=== PATIENT | male | born 1945 | race Caucasian/White ===

== ENCOUNTER 2023-01-23 20:47 | Inpatient (IN) | payer MEDICARE, OTHER ==
[~2023-01-23] VITALS: Ht 160 cm; Wt 67.4 kg
[2023-01-23 23:07] LABS: BASOPHILS % 0.4 % (0.0-2.0); EOSINOPHILS % 1.5 % (0.0-5.0); HEMATOCRIT. 26.7 % (42.0-52.0); HEMOGLOBIN. 8.6 g/dL (14.0-18.0); LYMPHOCYTES % 15.7 % (20.0-50.0); MEAN CORPUSCULAR HEMOGLOBIN 26.8 pg (28.0-32.0); MEAN CORPUSCULAR VOLUME 83.1 fL (80.0-94.0); MEAN PLATELET VOLUME 9.2 fl (7.4-10.4); NEUTROPHILS % 76.4 % (40.0-76.0); PLATELET 255 x1000/uL (130-400); RED BLOOD CELL COUNT 3.21 mill/uL (4.7-6.1); RED CELL DISTRIBUTION WIDTH 16.7 % (11.6-14.6)
[2023-01-23 23:14] LABS: CHLORIDE 112 mEq/L (98-107)
[2023-01-23 23:30] LABS: T4 FREE 0.95 ng/dL (0.76-1.46)
[2023-01-23] MEDS ORDERED: SODIUM CHLORIDE 0.9% 1,000 ML IV ONE (23:45)
[2023-01-24] MEDS ORDERED: IOHEXOL-350 100 ML BOTTLE ONE (00:33)
[2023-01-24] MEDS ORDERED: ONDANSETRON HCL 4MG/2ML INJ IV PRN (11:00)
[2023-01-24] MEDS ORDERED: IPRATROPIUM/ALBUTEROL 0.5-3(2.5)MG/3ML NEB HHN PRN (11:00)
[2023-01-24] MEDS ORDERED: ACETAMINOPHEN 325MG TABLET PO PRN (11:00)
[2023-01-24] MEDS ORDERED: ENOXAPARIN 40MG/0.4ML SYR SUBCUT SCH (12:00)
[2023-01-24 16:00] VITALS: BP 94/51
[2023-01-24 17:30] LABS: VITAMIN B12 SERUM 374 pg/mL (211-911)
[2023-01-24 18:05] LABS: FERRITIN < 5 ng/mL (22-322)
[2023-01-24] MEDS: ASPIRIN 81MG TABLET PO SCH (18:33)
[2023-01-24] MEDS: SODIUM CHLORIDE 0.45% 1,000 ML IV SCH (18:42)
[2023-01-24 20:00] VITALS: BP 115/64
[2023-01-24 21:15] VITALS: BP_SYST 105; BP_SYST 118; BP_SYST 119; BP_DIAS 57; BP_DIAS 65; BP_DIAS 71
[2023-01-24] MEDS: ATORVASTATIN CALCIUM 20MG TABLET PO SCH (21:15)
[2023-01-24 23:42] LABS: CREATINE KINASE MB FRACTION 4.8 ng/mL (0.5-3.6)
[2023-01-24] MEDS: BLOOD SUGAR DIAGNOSTIC STRIP TEST SCH (23:46)
[2023-01-25] VITALS: BP 104/64
[2023-01-25 00:11] LABS: CLARITY URINE CLEAR (CLEAR); COLOR URINE YELLOW (YELLOW); KETONES URINE NEGATIVE (NEGATIVE); LEUKOCYTE ESTERASE URINE TRACE (NEGATIVE); NITRITE URINE NEGATIVE (NEGATIVE); OCCULT BLOOD URINE NEGATIVE (NEGATIVE); PH URINE 6.5 (4.5-8.0); PROTEIN URINE NEGATIVE (NEGATIVE); UROBILINOGEN URINE 0.2 E.U./dL (0.2-1.0)
[2023-01-25] MEDS ORDERED: DEXTROSE 50% WATER 50ML SYRINGE IV PRN (00:30)
[2023-01-25 00:34] LABS: *AMPHETAMINES SCREEN URINE NEGATIVE (NEGATIVE); *BARBITURATES SCREEN URINE NEGATIVE (NEGATIVE); *BENZODIAZEPINES SCREEN URINE NEGATIVE (NEGATIVE); *COCAINE SCREEN URINE NEGATIVE (NEGATIVE); CANNABINOID URINE SCREEN NEGATIVE (NEGATIVE); METHADONE URINE SCREEN NEGATIVE (NEGATIVE); OPIATES URINE SCREEN NEGATIVE (NEGATIVE); PHENCYCLIDINE URINE SCREEN NEGATIVE (NEGATIVE)
[2023-01-25] MEDS: SODIUM CHLORIDE 0.45% 1,000 ML IV SCH ×2 (03:46→13:47)
[2023-01-25 04:00] VITALS: BP 106/62
[2023-01-25] MEDS: BLOOD SUGAR DIAGNOSTIC STRIP TEST SCH ×4 (06:37→21:00)
[2023-01-25] MEDS: FUROSEMIDE 20MG/2ML VIAL IVP SCH (06:43)
[2023-01-25] MEDS: INSULIN LISPRO 100 UNITS/ML SUBCUT SCH ×4 (06:50→21:00)
[2023-01-25 07:42] VITALS: BP 111/64
[2023-01-25] MEDS: ASPIRIN 81MG TABLET PO SCH (09:13)
[2023-01-25] MEDS ORDERED: IODIXANOL 320MG/ML 100 ML BOTTLE IV ONE (10:54)
[2023-01-25] MEDS ORDERED: DIPHENHYDRAMINE 50MG/ML VIAL ONE (11:14)
[2023-01-25] MEDS ORDERED: LIDOCAINE HCL/PF 1% 10 MG/ML 5ML VIAL ONE (11:14)
[2023-01-25] MEDS ORDERED: HEPARIN 1000 UNITS/ML 10ML ONE (11:15)
[2023-01-25] MEDS ORDERED: MIDAZOLAM HCL 2 MG/2 ML VIAL ONE (11:15)
[2023-01-25] MEDS ORDERED: FENTANYL CITRATE/PF 50MCG/ML 2ML VIAL ONE (11:15)
[2023-01-25] MEDS ORDERED: VERAPAMIL HCL 2.5 MG/1 ML 2ML VIAL IV ONE (11:15)
[2023-01-25 12:54] VITALS: BP 116/30
[2023-01-25] MEDS ORDERED: ACETAMINOPHEN 325MG TABLET PO PRN ×2 (13:00→17:15)
[2023-01-25] MEDS ORDERED: ATROPINE SULFATE 1MG/10ML SYR IV PRN (13:00)
[2023-01-25] MEDS ORDERED: NICARDIPINE 100MCG/ML 10ML VIAL (CATH LAB) IV ONE (13:21)
[2023-01-25] MEDS ORDERED: NITROGLYCERIN 50MCG/ML 10ML VIAL (CATH LAB) IV ONE (13:21)
[2023-01-25] MEDS: ENOXAPARIN 60MG/0.6ML SYR SUBCUT SCH (14:00)
[2023-01-25 16:00] VITALS: BP 116/30
[2023-01-25] MEDS ORDERED: NITROGLYCERIN 0.4MG TABLET SL SL PRN (17:15)
[2023-01-25 20:00] VITALS: BP 96/43
[2023-01-25] MEDS: ATORVASTATIN CALCIUM 20MG TABLET PO SCH (20:36)
[2023-01-26] VITALS: BP 113/78
[2023-01-26] MEDS: SODIUM CHLORIDE 0.45% 1,000 ML IV SCH ×2 (02:12→18:11)
[2023-01-26] MEDS: ENOXAPARIN 60MG/0.6ML SYR SUBCUT SCH ×2 (02:12→15:30)
[2023-01-26 04:00] VITALS: BP 93/59
[2023-01-26 06:12] LABS: INR 1.1; PROTHROMBIN TIME 11.4 sec (9.6-11.0)
[2023-01-26 06:13] LABS: BASOPHILS % 0.5 % (0.0-2.0); EOSINOPHILS % 3.6 % (0.0-5.0); HEMATOCRIT. 26.8 % (42.0-52.0); HEMOGLOBIN. 8.8 g/dL (14.0-18.0); LYMPHOCYTES % 24.1 % (20.0-50.0); MEAN CORPUSCULAR HEMOGLOBIN 26.9 pg (28.0-32.0); MEAN CORPUSCULAR VOLUME 82.4 fL (80.0-94.0); MEAN PLATELET VOLUME 9.1 fl (7.4-10.4); MONOCYTES % 10.1 % (2.0-8.0); NEUTROPHILS % 61.7 % (40.0-76.0); PLATELET 241 x1000/uL (130-400); RED BLOOD CELL COUNT 3.26 mill/uL (4.7-6.1); RED CELL DISTRIBUTION WIDTH 16.1 % (11.6-14.6)
[2023-01-26] MEDS: BLOOD SUGAR DIAGNOSTIC STRIP TEST SCH ×4 (06:50→21:23)
[2023-01-26] MEDS: FUROSEMIDE 20MG/2ML VIAL IVP SCH (07:01)
[2023-01-26] MEDS: INSULIN LISPRO 100 UNITS/ML SUBCUT SCH ×4 (07:20→21:00)
[2023-01-26 07:25] LABS: CHLORIDE 107 mEq/L (98-107)
[2023-01-26 08:00] VITALS: BP 119/61
[2023-01-26] MEDS: ASPIRIN 81MG TABLET PO SCH (09:52)
[2023-01-26 12:00] VITALS: BP 123/46
[2023-01-26 16:00] VITALS: BP 115/63
[2023-01-26] MEDS: FUROSEMIDE 40MG TABLET PO SCH (18:11)
[2023-01-26 20:00] VITALS: BP 102/64
[2023-01-26] MEDS ORDERED: DOCUSATE SODIUM 100MG CAPSULE PO SCH (21:00)
[2023-01-26] MEDS ORDERED: CHLORHEXIDINE GLUCONATE 4% EXTERNAL USE TOP SCH (21:00)
[2023-01-26] MEDS ORDERED: ASCORBIC ACID 500 MG TABLET PO SCH (21:00)
[2023-01-26] MEDS ORDERED: DIPHENHYDRAMINE 25MG CAPSULE PO PRN (21:00)
[2023-01-26] MEDS ORDERED: ALLOPURINOL 300 MG TABLET PO SCH (21:00)
[2023-01-26] MEDS: ATORVASTATIN CALCIUM 20MG TABLET PO SCH (21:22)
[2023-01-27] VITALS: BP 105/43
[2023-01-27 04:00] VITALS: BP 108/49
[2023-01-27] MEDS: SODIUM CHLORIDE 0.45% 1,000 ML IV SCH (05:10)
[2023-01-27] MEDS ORDERED: CEFAZOLIN 2,000 MG in DEXT 5% WATER 100 ML IV NR ×2 (06:00→07:00)
[2023-01-27] MEDS ORDERED: NICARDIPINE 50 MG in NS 230 ML IV NR (06:00)
[2023-01-27] MEDS ORDERED: BLOOD SUGAR DIAGNOSTIC STRIP TEST NR (06:00)
[2023-01-27] MEDS ORDERED: INSULIN REGULAR 100U/100ML PMX 100 ML IV NR (06:00)
[2023-01-27] MEDS ORDERED: NOREPINEPHRINE 8 MG in DEXT 5% WATER 242 ML IV NR (06:00)
[2023-01-27] MEDS ORDERED: EPINEPHRINE 5 MG in DEXT 5% WATER 245 ML IV NR (06:00)
[2023-01-27] MEDS ORDERED: DEL NIDO ELECTROLYTE-S(PH 7.4) 1,000 ML IV NR ×2 (06:00)
[2023-01-27] MEDS ORDERED: PAPAVERINE HCL 180MG in SODIUM CHLORIDE 0.9% 24ML IV NR (06:00)
[2023-01-27] MEDS: FUROSEMIDE 40MG TABLET PO SCH ×2 (07:19→18:07)
[2023-01-27] MEDS: BLOOD SUGAR DIAGNOSTIC STRIP TEST SCH ×4 (07:19→21:22)
[2023-01-27] MEDS: INSULIN LISPRO 100 UNITS/ML SUBCUT SCH ×4 (07:20→21:00)
[2023-01-27 08:02] VITALS: BP 112/64
[2023-01-27] MEDS ORDERED: CHLORHEXIDINE GLUCONATE 4% EXTERNAL USE TOP SCH (09:00)
[2023-01-27] MEDS: ASPIRIN 81MG TABLET PO SCH (09:47)
[2023-01-27 12:00] VITALS: BP 119/59
[2023-01-27 16:00] VITALS: BP 128/89
[2023-01-27 17:09] LABS: BASOPHILS % 0.4 % (0.0-2.0); EOSINOPHILS % 1.3 % (0.0-5.0); HEMATOCRIT. 31.4 % (42.0-52.0); HEMOGLOBIN. 10.2 g/dL (14.0-18.0); LYMPHOCYTES % 17.2 % (20.0-50.0); MEAN CORPUSCULAR HEMOGLOBIN 26.6 pg (28.0-32.0); MEAN PLATELET VOLUME 9.2 fl (7.4-10.4); MONOCYTES % 10.9 % (2.0-8.0); NEUTROPHILS % 70.2 % (40.0-76.0); PLATELET 308 x1000/uL (130-400); RED BLOOD CELL COUNT 3.83 mill/uL (4.7-6.1); RED CELL DISTRIBUTION WIDTH 16.1 % (11.6-14.6)
[2023-01-27 17:19] LABS: CHLORIDE 98 mEq/L (98-107)
[2023-01-27 20:00] VITALS: BP 109/44
[2023-01-27] MEDS ORDERED: ASCORBIC ACID 500 MG TABLET PO NR (21:00)
[2023-01-27] MEDS ORDERED: DOCUSATE SODIUM 100MG CAPSULE PO NR (21:00)
[2023-01-27] MEDS: ALLOPURINOL 300 MG TABLET PO SCH (21:21)
[2023-01-27] MEDS: ATORVASTATIN CALCIUM 20MG TABLET PO SCH (21:21)
[2023-01-28] VITALS (54 sets, daily range): BP systolic 0–147; BP diastolic 0–71
[2023-01-28] MEDS ORDERED: PAPAVERINE HCL 180MG in SODIUM CHLORIDE 0.9% 24ML IV NR (04:00)
[2023-01-28] MEDS ORDERED: EPINEPHRINE 5 MG in DEXT 5% WATER 245 ML IV NR (04:00)
[2023-01-28] MEDS ORDERED: INSULIN REGULAR 100U/100ML PMX 100 ML IV NR (04:00)
[2023-01-28] MEDS ORDERED: CEFAZOLIN 2,000 MG in DEXT 5% WATER 100 ML IV NR (04:00)
[2023-01-28] MEDS ORDERED: NOREPINEPHRINE 8 MG in DEXT 5% WATER 242 ML IV NR (04:00)
[2023-01-28] MEDS ORDERED: DEL NIDO ELECTROLYTE-S(PH 7.4) 1,000 ML IV NR ×2 (04:00)
[2023-01-28] MEDS ORDERED: NICARDIPINE 50 MG in NS 230 ML IV NR (04:00)
[2023-01-28] MEDS ORDERED: DOPAMINE 400MG/250ML PREMIX 250 ML IV ONE (05:55)
[2023-01-28] MEDS ORDERED: NICARDIPINE 40MG/200ML PREMIX 0 ML IV ONE (05:56)
[2023-01-28] MEDS ORDERED: HEPARIN 1000 UNITS/ML 10ML ONE (05:57)
[2023-01-28] MEDS ORDERED: SEVOFLURANE 250 ML LIQUID INH ONE (05:57)
[2023-01-28] MEDS: ALLOPURINOL 300 MG TABLET PO SCH (05:59)
[2023-01-28] MEDS: INSULIN LISPRO 100 UNITS/ML SUBCUT SCH (06:27)
[2023-01-28] MEDS: BLOOD SUGAR DIAGNOSTIC STRIP TEST SCH ×10 (06:27→20:00)
[2023-01-28 06:46] LABS: CHLORIDE 100 mEq/L (98-107)
[2023-01-28 07:00] LABS: BASOPHILS % 0.5 % (0.0-2.0); EOSINOPHILS % 3.2 % (0.0-5.0); HEMATOCRIT. 29.1 % (42.0-52.0); HEMOGLOBIN. 9.7 g/dL (14.0-18.0); LYMPHOCYTES % 23.1 % (20.0-50.0); MEAN CORPUSCULAR HEMOGLOBIN 27.1 pg (28.0-32.0); MEAN CORPUSCULAR VOLUME 81.1 fL (80.0-94.0); MEAN PLATELET VOLUME 9.5 fl (7.4-10.4); MONOCYTES % 12.3 % (2.0-8.0); NEUTROPHILS % 60.9 % (40.0-76.0); PLATELET 292 x1000/uL (130-400); RED BLOOD CELL COUNT 3.58 mill/uL (4.7-6.1); RED CELL DISTRIBUTION WIDTH 16.1 % (11.6-14.6)
[2023-01-28] MEDS ORDERED: POLYMYXIN B SULFATE 500000 UNITS/VIAL ONE (07:03)
[2023-01-28] MEDS ORDERED: THROMBIN (BOVINE) 5000 UNITS/VIAL TOP ONE (07:03)
[2023-01-28] MEDS ORDERED: SKIN ADHESIVE 0.7 GM EA TOP ONE (07:04)
[2023-01-28] MEDS: FUROSEMIDE 40MG TABLET PO SCH ×2 (07:15→17:33)
[2023-01-28] MEDS ORDERED: FENTANYL CITRATE/PF 50MCG/ML 2ML VIAL ONE (07:57)
[2023-01-28] MEDS ORDERED: ROCURONIUM BROMIDE 10MG/ML VIAL 5ML IV ONE (07:58)
[2023-01-28] MEDS ORDERED: AMIODARONE HCL 50MG/ML 3ML VIAL IV ONE (08:00)
[2023-01-28] MEDS ORDERED: ALBUMIN HUMAN 25GM/100ML (25%) IV ONE ×2 (08:00→18:30)
[2023-01-28] MEDS ORDERED: HEPARIN 10,000 UNITS/ML VIAL ONE (08:00)
[2023-01-28] MEDS ORDERED: MAGNESIUM SULFATE 5GM/10ML VIAL IV ONE (08:00)
[2023-01-28] MEDS ORDERED: POTASSIUM CHLORIDE 40MEQ/20ML INJ IV ONE (08:00)
[2023-01-28] MEDS ORDERED: CALCIUM CHLORIDE 1GM/10ML SYR IV ONE (08:55)
[2023-01-28] MEDS ORDERED: CHLORHEXIDINE GLUCONATE 4% EXTERNAL USE TOP SCH (09:00)
[2023-01-28] MEDS ORDERED: DEXTROSE 50% WATER 50ML SYRINGE IV PRN ×2 (09:15)
[2023-01-28] MEDS ORDERED: BLOOD SUGAR DIAGNOSTIC STRIP TEST SCH (09:30)
[2023-01-28] MEDS ORDERED: POTASSIUM CHLORIDE 10MEQ IN WATER 50ML PREMIX IV ONE (10:20)
[2023-01-28] MEDS ORDERED: MAGNESIUM SULFATE 1G IN DEXT 5% 100ML PREMIX IV ONE (10:20)
[2023-01-28] MEDS ORDERED: AMIODARONE HCL 900 MG in DEXT 5% WATER 500 ML IV PRN (10:30)
[2023-01-28] MEDS ORDERED: AMIODARONE HCL 50MG/ML 3ML VIAL IV NR (10:45)
[2023-01-28] MEDS ORDERED: DEXMEDETOMIDINE 400 MCG/100 ML 100 ML IV ONE (10:46)
[2023-01-28] MEDS ORDERED: NEOSTIGMINE METHYLSULFATE 1MG/ML 10 ML VIAL ONE (10:47)
[2023-01-28] MEDS ORDERED: GLYCOPYRROLATE 0.2 MG/ML 2ML VIAL ONE ×2 (10:47→10:48)
[2023-01-28] MEDS ORDERED: ONDANSETRON HCL 4MG/2ML INJ IV PRN (11:00)
[2023-01-28] MEDS ORDERED: MAGNESIUM SULFATE 3 GM in DEXT 5% WATER 100 ML IV PRN (11:00)
[2023-01-28] MEDS ORDERED: KCL 10MEQ/50ML PREMIX 150 ML IV PRN (11:00)
[2023-01-28] MEDS ORDERED: MAGNESIUM 2 G PREMIX 50 ML IV PRN (11:00)
[2023-01-28] MEDS ORDERED: ALBUMIN HUMAN 12.5G/250ML (5%) IV PRN (11:00)
[2023-01-28] MEDS ORDERED: DOPAMINE 400MG/250ML PREMIX 250 ML IV SCH (11:00)
[2023-01-28] MEDS ORDERED: ALBUMIN HUMAN 25GM/100ML (25%) IV PRN (11:00)
[2023-01-28] MEDS ORDERED: KCL 10MEQ/50ML PREMIX 200 ML IV PRN (11:00)
[2023-01-28] MEDS ORDERED: SODIUM CHLORIDE 0.9% 500 ML IV PRN (11:00)
[2023-01-28] MEDS ORDERED: CALCIUM CHLORIDE 3,000 MG in DEXT 5% WATER 250 ML IV PRN (11:00)
[2023-01-28] MEDS ORDERED: EPINEPHRINE 5 MG in DEXT 5% WATER 245 ML IV SCH (11:00)
[2023-01-28] MEDS ORDERED: ACETAMINOPHEN 325MG TABLET PO PRN (11:00)
[2023-01-28] MEDS ORDERED: SODIUM BICARBONATE 8.4% 1 MEQ/ML 50ML SYR IV ONE (11:16)
[2023-01-28] MEDS: INSULIN REGULAR 100U/100ML PMX 100 ML IV SCH (11:35)
[2023-01-28 11:49] LABS: BG BASE EXCESS 2.1 mmol/L (-2.0-2.0); BG DEOXYHEMOGLOBIN 4.4 % (0.0-5.0); BG FRACTION INSPIRED OXYGEN 100; BG HCO3 ACT 27.8 mmol/L (22.0-26.0); BG METHEMOGLOBIN 0.4 % (0.0-1.5); BG OXYGEN SATURATION 95.6 % (92.0-98.5); BG OXYHEMOGLOBIN 95.2 % (94.0-97.0); BG PCO2 49.2 mmHg (35.0-45.0); BG PO2 89.1 mmHg (75.0-100.0); BG SAMPLE SITE ALINE; BG TOTAL HEMOGLOBIN 9.2 g/dL (12.0-18.0); BG VENT MODE MASK - NRB
[2023-01-28 12:14] LABS: HEMATOCRIT. 25.1 % (42.0-52.0); HEMOGLOBIN. 8.1 g/dL (14.0-18.0); MEAN CORPUSCULAR HEMOGLOBIN 26.5 pg (28.0-32.0); MEAN CORPUSCULAR VOLUME 82.1 fL (80.0-94.0); MEAN PLATELET VOLUME 9.1 fl (7.4-10.4); PLATELET 287 x1000/uL (130-400); RED BLOOD CELL COUNT 3.06 mill/uL (4.7-6.1); RED CELL DISTRIBUTION WIDTH 15.6 % (11.6-14.6)
[2023-01-28 12:24] LABS: CHLORIDE 106 mEq/L (98-107)
[2023-01-28] MEDS: DEXT 5%/0.45% NACL 1000ML 1,000 ML IV SCH (12:27)
[2023-01-28] MEDS: KETOROLAC 30MG/ML VIAL IV PRN (12:54)
[2023-01-28] MEDS: KCL 10MEQ/50ML PREMIX 100 ML IV PRN ×2 (12:55→14:14)
[2023-01-28 13:41] LABS: PLATELET ESTIMATE NORMAL
[2023-01-28] MEDS ORDERED: CEFAZOLIN 1000MG PREMIX 50 ML IV SCH ×2 (14:00→15:00)
[2023-01-28] MEDS: CEFAZOLIN 1000MG PREMIX 50 ML IV SCH ×2 (15:16→22:08)
[2023-01-28] MEDS: IPRATROPIUM/ALBUTEROL 0.5-3(2.5)MG/3ML NEB HHN SCH ×2 (16:19→20:20)
[2023-01-28] MEDS: BACITRACIN 15GM TUBE TOP SCH (17:00)
[2023-01-28 18:10] LABS: HEMATOCRIT. 30.1 % (42.0-52.0); HEMOGLOBIN. 10.1 g/dL (14.0-18.0); MEAN CORPUSCULAR HEMOGLOBIN 27.7 pg (28.0-32.0); MEAN CORPUSCULAR VOLUME 82.6 fL (80.0-94.0); PLATELET 238 x1000/uL (130-400); RED BLOOD CELL COUNT 3.64 mill/uL (4.7-6.1); RED CELL DISTRIBUTION WIDTH 15.7 % (11.6-14.6)
[2023-01-28 18:18] LABS: CHLORIDE 105 mEq/L (98-107)
[2023-01-28 19:12] LABS: PLATELET ESTIMATE NORMAL
[2023-01-28] MEDS ORDERED: FUROSEMIDE 40MG/4ML VIAL IVP SCH (21:00)
[2023-01-28] MEDS: ATORVASTATIN CALCIUM 40MG TABLET PO SCH (21:26)
[2023-01-28] MEDS ORDERED: ALBUMIN HUMAN 25GM/100ML (25%) IV SCH (21:30)
[2023-01-29] VITALS (97 sets, daily range): BP systolic 74–188; BP diastolic 23–186
[2023-01-29] MEDS: IPRATROPIUM/ALBUTEROL 0.5-3(2.5)MG/3ML NEB HHN SCH ×6 (00:27→20:23)
[2023-01-29] MEDS ORDERED: ALBUMIN HUMAN 25GM/100ML (25%) IV SCH (00:30)
[2023-01-29 00:49] LABS: HEMATOCRIT. 27.4 % (42.0-52.0); HEMOGLOBIN. 9.1 g/dL (14.0-18.0); MEAN CORPUSCULAR HEMOGLOBIN 27.6 pg (28.0-32.0); MEAN CORPUSCULAR VOLUME 83.4 fL (80.0-94.0); MEAN PLATELET VOLUME 8.9 fl (7.4-10.4); PLATELET 221 x1000/uL (130-400); RED BLOOD CELL COUNT 3.29 mill/uL (4.7-6.1); RED CELL DISTRIBUTION WIDTH 15.7 % (11.6-14.6)
[2023-01-29] MEDS ORDERED: NOREPINEPHRINE 8 MG in DEXT 5% WATER 242 ML IV PRN (01:00)
[2023-01-29] MEDS: BLOOD SUGAR DIAGNOSTIC STRIP TEST SCH ×11 (02:00→21:23)
[2023-01-29] MEDS: KCL 10MEQ/50ML PREMIX 100 ML IV PRN ×3 (04:24→08:47)
[2023-01-29] MEDS: KETOROLAC 30MG/ML VIAL IV PRN (04:26)
[2023-01-29] MEDS: CEFAZOLIN 1000MG PREMIX 50 ML IV SCH ×2 (05:53→13:59)
[2023-01-29 06:31] LABS: HEMATOCRIT. 26.4 % (42.0-52.0); HEMOGLOBIN. 8.9 g/dL (14.0-18.0); MEAN CORPUSCULAR HEMOGLOBIN 27.9 pg (28.0-32.0); MEAN PLATELET VOLUME 9.3 fl (7.4-10.4); PLATELET 212 x1000/uL (130-400); RED BLOOD CELL COUNT 3.18 mill/uL (4.7-6.1)
[2023-01-29] MEDS: INSULIN REGULAR 100U/100ML PMX 100 ML IV SCH (06:32)
[2023-01-29] MEDS: ASPIRIN 81MG EC TABLET PO SCH (08:50)
[2023-01-29] MEDS: CLOPIDOGREL 75MG TABLET PO SCH (08:50)
[2023-01-29] MEDS: FAMOTIDINE 20MG/2ML VIAL IV SCH (08:50)
[2023-01-29] MEDS: BACITRACIN 15GM TUBE TOP SCH ×2 (08:50→17:03)
[2023-01-29 09:21] LABS: PLATELET ESTIMATE NORMAL
[2023-01-29 09:52] LABS: PLATELET ESTIMATE NORMAL
[2023-01-29] MEDS ORDERED: FUROSEMIDE 40MG/4ML VIAL IVP NR (10:15)
[2023-01-29] MEDS: DEXT 5%/0.45% NACL 1000ML 1,000 ML IV SCH (11:57)
[2023-01-29] MEDS ORDERED: FUROSEMIDE 40MG/4ML VIAL IVP SCH (15:00)
[2023-01-29 15:05] LABS: HEMATOCRIT. 22.5 % (42.0-52.0); HEMOGLOBIN. 7.3 g/dL (14.0-18.0); MEAN CORPUSCULAR HEMOGLOBIN 27.6 pg (28.0-32.0); MEAN CORPUSCULAR VOLUME 84.7 fL (80.0-94.0); PLATELET 136 x1000/uL (130-400); RED BLOOD CELL COUNT 2.66 mill/uL (4.7-6.1); RED CELL DISTRIBUTION WIDTH 15.5 % (11.6-14.6)
[2023-01-29 16:27] LABS: HEMOGLOBIN 6.7 g/dL (14.0-18.0)
[2023-01-29 16:28] LABS: HEMATOCRIT 20.5 % (42.0-52.0)
[2023-01-29 16:54] LABS: HEMOGLOBIN. 10.2 g/dL (14.0-18.0); MEAN CORPUSCULAR HEMOGLOBIN 28.4 pg (28.0-32.0); MEAN CORPUSCULAR VOLUME 83.3 fL (80.0-94.0); MEAN PLATELET VOLUME 9.2 fl (7.4-10.4); PLATELET 184 x1000/uL (130-400); RED CELL DISTRIBUTION WIDTH 15.8 % (11.6-14.6)
[2023-01-29] MEDS: MAGNESIUM 1 G PREMIX 100 ML IV PRN ×2 (17:03→18:35)
[2023-01-29] MEDS ORDERED: DEXTROSE 50% WATER 50ML SYRINGE IV PRN (18:45)
[2023-01-29] MEDS: INSULIN LISPRO 100 UNITS/ML SUBCUT SCH (21:00)
[2023-01-29] MEDS: ATORVASTATIN CALCIUM 40MG TABLET PO SCH (21:23)
[2023-01-30] VITALS (20 sets, daily range): BP systolic 89–135; BP diastolic 38–85
[2023-01-30] MEDS: IPRATROPIUM/ALBUTEROL 0.5-3(2.5)MG/3ML NEB HHN SCH ×6 (00:19→21:16)
[2023-01-30 00:40] LABS: BASOPHILS % 0.1 % (0.0-2.0); HEMATOCRIT. 29.7 % (42.0-52.0); HEMOGLOBIN. 9.8 g/dL (14.0-18.0); LYMPHOCYTES % 7.8 % (20.0-50.0); MEAN CORPUSCULAR HEMOGLOBIN 27.5 pg (28.0-32.0); MEAN CORPUSCULAR VOLUME 83.7 fL (80.0-94.0); MEAN PLATELET VOLUME 8.9 fl (7.4-10.4); MONOCYTES % 7.6 % (2.0-8.0); NEUTROPHILS % 84.5 % (40.0-76.0); PLATELET 175 x1000/uL (130-400); RED BLOOD CELL COUNT 3.55 mill/uL (4.7-6.1); RED CELL DISTRIBUTION WIDTH 16.1 % (11.6-14.6)
[2023-01-30 01:01] LABS: CHLORIDE 99 mEq/L (98-107)
[2023-01-30] MEDS ORDERED: SODIUM CHLORIDE 0.9% 500 ML IV PRN (03:43)
[2023-01-30] MEDS ORDERED: DOPAMINE 400MG/250ML PREMIX 250 ML IV PRN (03:45)
[2023-01-30 05:17] LABS: PLATELET ESTIMATE NORMAL
[2023-01-30 05:48] LABS: BASOPHILS % 0.2 % (0.0-2.0); EOSINOPHILS % 0.1 % (0.0-5.0); HEMATOCRIT. 30.4 % (42.0-52.0); LYMPHOCYTES % 9.3 % (20.0-50.0); MEAN CORPUSCULAR HEMOGLOBIN 27.7 pg (28.0-32.0); MEAN CORPUSCULAR VOLUME 84.1 fL (80.0-94.0); MEAN PLATELET VOLUME 9.5 fl (7.4-10.4); MONOCYTES % 8.8 % (2.0-8.0); NEUTROPHILS % 81.6 % (40.0-76.0); PLATELET 176 x1000/uL (130-400); RED BLOOD CELL COUNT 3.61 mill/uL (4.7-6.1); RED CELL DISTRIBUTION WIDTH 15.7 % (11.6-14.6)
[2023-01-30 05:57] LABS: CHLORIDE 97 mEq/L (98-107)
[2023-01-30 07:40] LABS: PLATELET ESTIMATE NORMAL
[2023-01-30] MEDS: BLOOD SUGAR DIAGNOSTIC STRIP TEST SCH ×4 (08:02→21:27)
[2023-01-30] MEDS: INSULIN LISPRO 100 UNITS/ML SUBCUT SCH ×4 (08:03→21:00)
[2023-01-30] MEDS: CLOPIDOGREL 75MG TABLET PO SCH (08:41)
[2023-01-30] MEDS: ASPIRIN 81MG EC TABLET PO SCH (08:41)
[2023-01-30] MEDS: FAMOTIDINE 20MG/2ML VIAL IV SCH (08:41)
[2023-01-30] MEDS: BACITRACIN 15GM TUBE TOP SCH ×2 (08:41→18:12)
[2023-01-30] MEDS: DEXT 5%/0.45% NACL 1000ML 1,000 ML IV SCH (12:41)
[2023-01-30] MEDS ORDERED: FUROSEMIDE 20MG/2ML VIAL IVP NR (12:45)
[2023-01-30] MEDS: ATORVASTATIN CALCIUM 40MG TABLET PO SCH (21:28)
[2023-01-31] VITALS: BP 128/73
[2023-01-31] MEDS: IPRATROPIUM/ALBUTEROL 0.5-3(2.5)MG/3ML NEB HHN SCH ×5 (00:29→21:00)
[2023-01-31 04:00] VITALS: BP 107/64
[2023-01-31] MEDS: BLOOD SUGAR DIAGNOSTIC STRIP TEST SCH ×4 (06:59→21:17)
[2023-01-31 07:18] LABS: BASOPHILS % 0.2 % (0.0-2.0); EOSINOPHILS % 1.2 % (0.0-5.0); HEMATOCRIT. 33.3 % (42.0-52.0); HEMOGLOBIN. 11.4 g/dL (14.0-18.0); LYMPHOCYTES % 12.2 % (20.0-50.0); MEAN CORPUSCULAR HEMOGLOBIN 28.8 pg (28.0-32.0); MEAN CORPUSCULAR VOLUME 83.9 fL (80.0-94.0); MEAN PLATELET VOLUME 9.5 fl (7.4-10.4); MONOCYTES % 9.7 % (2.0-8.0); NEUTROPHILS % 76.7 % (40.0-76.0); PLATELET 191 x1000/uL (130-400); RED BLOOD CELL COUNT 3.97 mill/uL (4.7-6.1); RED CELL DISTRIBUTION WIDTH 15.7 % (11.6-14.6)
[2023-01-31] MEDS: INSULIN LISPRO 100 UNITS/ML SUBCUT SCH ×4 (07:20→21:00)
[2023-01-31 07:54] LABS: CHLORIDE 102 mEq/L (98-107)
[2023-01-31 08:00] VITALS: BP 127/79
[2023-01-31] MEDS: CLOPIDOGREL 75MG TABLET PO SCH (09:14)
[2023-01-31] MEDS: FAMOTIDINE 20MG/2ML VIAL IV SCH (09:14)
[2023-01-31] MEDS: ASPIRIN 81MG EC TABLET PO SCH (09:14)
[2023-01-31] MEDS: BACITRACIN 15GM TUBE TOP SCH ×2 (09:15→17:49)
[2023-01-31] MEDS: FUROSEMIDE 20MG/2ML VIAL IVP SCH (09:18)
[2023-01-31] MEDS: CARVEDILOL 6.25 MG TABLET PO SCH ×2 (10:58→21:18)
[2023-01-31 12:00] VITALS: BP 134/76
[2023-01-31] MEDS: DEXT 5%/0.45% NACL 1000ML 1,000 ML IV SCH (12:44)
[2023-01-31] MEDS ORDERED: FUROSEMIDE 20MG/2ML VIAL IVP NR (13:45)
[2023-01-31 16:00] VITALS: BP 144/74
[2023-01-31 20:28] VITALS: BP 119/62
[2023-01-31] MEDS: ATORVASTATIN CALCIUM 40MG TABLET PO SCH (21:17)
[2023-02-01] VITALS: BP 102/60
[2023-02-01] MEDS: IPRATROPIUM/ALBUTEROL 0.5-3(2.5)MG/3ML NEB HHN SCH ×3 (00:13→09:15)
[2023-02-01 04:00] VITALS: BP 103/62
[2023-02-01] MEDS: BLOOD SUGAR DIAGNOSTIC STRIP TEST SCH (06:55)
[2023-02-01] MEDS: INSULIN LISPRO 100 UNITS/ML SUBCUT SCH (06:56)
[2023-02-01 08:00] VITALS: BP 117/66
[2023-02-01] MEDS: ASPIRIN 81MG EC TABLET PO SCH (08:44)
[2023-02-01] MEDS: CLOPIDOGREL 75MG TABLET PO SCH (08:44)
[2023-02-01] MEDS: FAMOTIDINE 20MG/2ML VIAL IV SCH (08:44)
[2023-02-01] MEDS: CARVEDILOL 6.25 MG TABLET PO SCH (08:44)
[2023-02-01] MEDS: FUROSEMIDE 20MG/2ML VIAL IVP SCH (08:44)
[2023-02-01] MEDS: BACITRACIN 15GM TUBE TOP SCH (08:45)
[2023-02-01] MEDS ORDERED: TRAM50TA3 MT (11:19)
[2023-02-01] MEDS ORDERED: ASPI-1406 PO (11:19)
[2023-02-01] MEDS ORDERED: COR6 PO (11:19)
[2023-02-01] MEDS ORDERED: CLOP-31 PO (11:19)
[2023-02-01] MEDS ORDERED: LIP40 PO (11:19)
[2023-02-01 12:00] VITALS: BP 110/68
[2023-02-01] MEDS: DEXT 5%/0.45% NACL 1000ML 1,000 ML IV SCH (12:12)
[2023-02-01 13:07] VITALS: BP 110/68
== END 2023-02-01 14:30 | disposition home health service (06) | DRG 233 ==
LOC: ER 20:47 → 3WST 01-24 03:21 → CVICU 01-28 11:22 → 3WST 01-30 15:01
PROVIDERS: ADMIT Internal Medicine; ATTEND Internal Medicine
PROC: 4A023N7 Measurement of Cardiac Sampling and Pressure, Left Heart, Percutaneous Approach (ICD-10-PCS; principal; 2023-01-25)
PROC: B211YZZ Fluoroscopy of Multiple Coronary Arteries using Other Contrast (ICD-10-PCS; 2023-01-25)
PROC: B215YZZ Fluoroscopy of Left Heart using Other Contrast (ICD-10-PCS; 2023-01-25)
PROC: 02100Z9 Bypass Coronary Artery, One Artery from Left Internal Mammary, Open Approach (ICD-10-PCS; 2023-01-28)
PROC: 021209W Bypass Coronary Artery, Three Arteries from Aorta with Autologous Venous Tissue, Open Approach (ICD-10-PCS; 2023-01-28)
PROC: 06BQ3ZZ Excision of Left Saphenous Vein, Percutaneous Approach (ICD-10-PCS; 2023-01-28)
PROC: 30233N1 Transfusion of Nonautologous Red Blood Cells into Peripheral Vein, Percutaneous Approach (ICD-10-PCS; 2023-01-28)
DX: I21.4 Non-ST elevation (NSTEMI) myocardial infarction (principal); I50.21 Acute systolic (congestive) heart failure; I11.0 Hypertensive heart disease with heart failure; E11.9 Type 2 diabetes mellitus without complications; D64.9 Anemia, unspecified; E78.5 Hyperlipidemia, unspecified; R29.6 Repeated falls; Z20.822 Contact with and (suspected) exposure to COVID-19; E78.00 Pure hypercholesterolemia, unspecified
CPT/HCPCS: 36415; 36600; 71045; 71275; 72141; 72146; 72148; 74174; 80048; 80053; 80061; 80305; 81003; 82375; 82533; 82553; 82607; 82728; 82805; 82962; 83036; 83540; 83550; 83605; 83735; 83880; 84132; 84439; 84443; 84484; 85014; 85018; 85025; 86850; 86900; 86920; 87426; 93005; 93306; 93458; 93880; 94640; 97110; 97116; 97162; 97166; 97530; 97535; 99291; C1769; C1887; C1893; J0282; J0690; J1200; J1265; J1644; J1650; J1815; J1885; J1940; J2250; J2440; J2710; J3010; J3475; J3480; J3490; J7030; J7050; J7060; P9016; P9047; Q9957; Q9967